=== PATIENT | female | born 1965 | race Caucasian/White ===

== ENCOUNTER → 2019-05-16 16:05 | Outpatient (BNVA) | payer OTHER, SELFPAY | PROVIDERS: Family Provider Family Medicine; Visit Provider Nurse Practitioner Psychiatric/Mental Health | DX: F31.4 Bipolar disorder, current episode depressed, severe, without psychotic features (principal); F41.9 Anxiety disorder, unspecified; F43.12 Post-traumatic stress disorder, chronic; Z79.899 Other long term (current) drug therapy | CPT/HCPCS: 99214 ==

== ENCOUNTER → 2019-05-17 09:34 | Outpatient (BNVA) | payer BC, SELFPAY | PROVIDERS: Family Provider Family Medicine; Visit Provider Nurse Practitioner Psychiatric/Mental Health | DX: Z79.899 Other long term (current) drug therapy (principal) | CPT/HCPCS: 80061; 83036 ==

== ENCOUNTER → 2019-06-13 07:50 | Outpatient (BNVA) | payer BC, SELFPAY | PROVIDERS: Family Provider Family Medicine; Visit Provider Nurse Practitioner Psychiatric/Mental Health | DX: F31.75 Bipolar disorder, in partial remission, most recent episode depressed (principal); F41.9 Anxiety disorder, unspecified; F43.12 Post-traumatic stress disorder, chronic | CPT/HCPCS: 99213 ==

== ENCOUNTER → 2019-08-08 07:48 | Outpatient (BNVA) | payer BC, SELFPAY | PROVIDERS: Family Provider Family Medicine; Visit Provider Nurse Practitioner Psychiatric/Mental Health | DX: F43.12 Post-traumatic stress disorder, chronic (principal); F31.75 Bipolar disorder, in partial remission, most recent episode depressed; F41.9 Anxiety disorder, unspecified; F41.1 Generalized anxiety disorder | CPT/HCPCS: 99212 ==

== ENCOUNTER → 2019-09-10 08:01 | Outpatient (BNVA) | payer BC, SELFPAY | PROVIDERS: Family Provider Family Medicine; Visit Provider Nurse Practitioner Psychiatric/Mental Health | DX: F43.12 Post-traumatic stress disorder, chronic (principal); F31.75 Bipolar disorder, in partial remission, most recent episode depressed; F41.9 Anxiety disorder, unspecified | CPT/HCPCS: 99212 ==

== ENCOUNTER → 2019-10-03 07:47 | Outpatient (BNVA) | payer BC, SELFPAY | PROVIDERS: Family Provider Family Medicine; Visit Provider Nurse Practitioner Psychiatric/Mental Health | DX: F43.12 Post-traumatic stress disorder, chronic (principal); F31.75 Bipolar disorder, in partial remission, most recent episode depressed; F41.9 Anxiety disorder, unspecified | CPT/HCPCS: 99212 ==

== ENCOUNTER → 2019-10-31 08:06 | Outpatient (BNVA) | payer BC, SELFPAY | PROVIDERS: Family Provider Family Medicine; Visit Provider Nurse Practitioner Psychiatric/Mental Health | DX: F31.75 Bipolar disorder, in partial remission, most recent episode depressed (principal); F41.9 Anxiety disorder, unspecified; F43.12 Post-traumatic stress disorder, chronic | CPT/HCPCS: 99212 ==

== ENCOUNTER → 2019-11-28 08:15 | Outpatient (BNVA) | payer BC, SELFPAY | PROVIDERS: Family Provider Family Medicine; Visit Provider Nurse Practitioner Psychiatric/Mental Health | DX: F31.75 Bipolar disorder, in partial remission, most recent episode depressed (principal); F43.12 Post-traumatic stress disorder, chronic; F41.9 Anxiety disorder, unspecified | CPT/HCPCS: 99212 ==

== ENCOUNTER → 2020-01-09 07:38 | Outpatient (BNVA) | payer BC, SELFPAY | PROVIDERS: Family Provider Family Medicine; Visit Provider Nurse Practitioner Psychiatric/Mental Health | DX: F31.75 Bipolar disorder, in partial remission, most recent episode depressed (principal); F41.9 Anxiety disorder, unspecified; F43.12 Post-traumatic stress disorder, chronic | CPT/HCPCS: G0463 ==

== ENCOUNTER → 2020-03-05 07:33 | Outpatient (BNVA) | payer BC, SELFPAY | PROVIDERS: Family Provider Family Medicine; Visit Provider Nurse Practitioner Psychiatric/Mental Health | DX: F43.12 Post-traumatic stress disorder, chronic (principal); F41.9 Anxiety disorder, unspecified; F31.75 Bipolar disorder, in partial remission, most recent episode depressed | CPT/HCPCS: 99212 ==

== ENCOUNTER → 2020-04-23 08:17 | Outpatient (BNVA) | payer BC, SELFPAY | PROVIDERS: Family Provider Family Medicine; Visit Provider Nurse Practitioner Psychiatric/Mental Health | DX: F31.75 Bipolar disorder, in partial remission, most recent episode depressed (principal); F43.12 Post-traumatic stress disorder, chronic; F41.9 Anxiety disorder, unspecified | CPT/HCPCS: 99212 ==

== ENCOUNTER → 2020-07-16 08:12 | Outpatient (BNVA) | payer BC, SELFPAY | PROVIDERS: Family Provider Family Medicine; Visit Provider Nurse Practitioner Psychiatric/Mental Health | DX: F31.75 Bipolar disorder, in partial remission, most recent episode depressed (principal); F43.12 Post-traumatic stress disorder, chronic; F41.9 Anxiety disorder, unspecified | CPT/HCPCS: 99213 ==

== ENCOUNTER 2021-01-14 12:07 | Outpatient (CLI) | payer BC, SELFPAY ==
[2021-01-14 12:58] VITALS: BMI 28.3
--- NOTE | 2021-01-14 12:59 | ECG_ITS ---
[facility] Test Date: 2021-01-14 Pat Name: Tamra Mulligan Department: Room: Gender: Female Manager Bar: : 1965 Requested By: Rishabh Kennedy Order Number: [id number] Nichols MD: Russel Mix M.D. Interpretive Statements NAME OF STUDY: TREADMILL STRESS TEST INDICATION: [Chest Pain] The patient was exercised by Gregory protocol. Baseline heart rate was 99 beats per minute. Baseline blood pressure was 125/86 millimeters of mercury. Target heart rate was 140 beats per minute. Maximum heart rate achieved was 149, which was 106% of the target heart rate. Maximum blood pressure was 169/99 millimeters of mercury. Total exercise time was 6 minutes. Maximum METs achieved was 7, maximum VO2 was 24.5. The reason for ending the test was completion of the protocol. The patient complained of shortness of breath during the stress test, which then resolved at the end of the test. ELECTROCARDIOGRAM: BASELINE: Showed sinus rhythm, normal axis, no significant ST-T changes at the baseline noted. [] EXERCISE: At the peak exercise level, [] 1-2mm ST depressions were noted in the inferior leads [] RECOVERY: During the recovery period, heart rate dropped appropriately. ST changes resolved by the end of the test. [] CONCLUSION: 1. Exercise capacity fair 2. Heart rate response was appropriate 3. Blood pressure response was appropriate. 4. Symptoms not suggestive of ischemia. 5. Abnormal EKG stress test with ST depressions noted in the inferior leads indicative of ischemia Electronically Signed On 02-22-2021 10:05:33 [employer] by Russel Mix M.D. [email or web address]
[2021-01-14 14:02] VITALS: BP 136/83; PULSE 106
== END 2021-01-14 12:08 | disposition home or self-care (01) ==
LOC: CDL 12:09
PROVIDERS: PCP Family Medicine; Visit Provider Family Medicine
DX: R07.89 Other chest pain (principal)
CPT/HCPCS: 93017

== ENCOUNTER → 2021-05-07 00:01 | Outpatient (BNVA) | payer BC, SELFPAY | PROVIDERS: PCP Family Medicine; Visit Provider Nurse Practitioner Psychiatric/Mental Health | DX: Z79.899 Other long term (current) drug therapy (principal) | CPT/HCPCS: 80061; 83036 ==

== ENCOUNTER → 2022-10-13 10:31 | Outpatient (BNVA) | payer BC, SELFPAY | PROVIDERS: PCP Family Medicine; Visit Provider Nurse Practitioner Psychiatric/Mental Health | DX: Z79.899 Other long term (current) drug therapy (principal); Z51.81 Encounter for therapeutic drug level monitoring | CPT/HCPCS: 80053; 80061; 83036 ==

== ENCOUNTER → 2023-10-12 08:43 | Outpatient (BNVA) | payer BC, SELFPAY | PROVIDERS: PCP Family Medicine; Visit Provider Nurse Practitioner Psychiatric/Mental Health | DX: Z79.899 Other long term (current) drug therapy (principal); F31.76 Bipolar disorder, in full remission, most recent episode depressed; F43.12 Post-traumatic stress disorder, chronic; F41.3 Other mixed anxiety disorders | CPT/HCPCS: 80053; 80061; 83036 ==

== ENCOUNTER → 2025-01-02 08:41 | Outpatient (BNVA) | payer BC, SELFPAY | PROVIDERS: PCP Family Medicine; Visit Provider Nurse Practitioner Psychiatric/Mental Health | DX: Z79.899 Other long term (current) drug therapy (principal) | CPT/HCPCS: 80053; 80061; 83036 ==

== ENCOUNTER → 2025-04-03 07:23 | Outpatient (BNVA) | payer BC, SELFPAY | PROVIDERS: PCP Nurse Practitioner Family; Visit Provider Podiatrist Foot & Ankle Surgery | DX: M79.671 Pain in right foot (principal); M25.571 Pain in right ankle and joints of right foot; S99.911A Unspecified injury of right ankle, initial encounter; S99.921A Unspecified injury of right foot, initial encounter; S93.491A Sprain of other ligament of right ankle, initial encounter; S93.401A Sprain of unspecified ligament of right ankle, initial encounter; V89.2XXA Person injured in unspecified motor-vehicle accident, traffic, initial encounter | CPT/HCPCS: 73600; 73630 ==